=== PATIENT | female | born 1940 | race Caucasian/White ===

== ENCOUNTER → 2022-09-25 15:37 | Outpatient (BNVA) | payer MEDICARE, BC, SELFPAY | PROVIDERS: Visit Provider Nurse Practitioner Family | DX: N39.0 Urinary tract infection, site not specified (principal) | CPT/HCPCS: Q3014 ==

== ENCOUNTER 2023-02-21 14:07 | Outpatient (REF) | payer MEDICARE, BC, SELFPAY | END 2023-02-21 14:08 | disposition home or self-care (01) | LOC: HO.LNP 14:07 | PROVIDERS: Visit Provider Nurse Practitioner Family | DX: N39.0 Urinary tract infection, site not specified (principal) | CPT/HCPCS: 87086 ==

== ENCOUNTER 2024-08-24 16:22 | Outpatient (AMB) | payer MEDICARE, BC, SELFPAY ==
--- NOTE | 2024-08-24 16:23 | MHC.OFFVIS ---
Intake Visit Reasons: UTI? Allergies nitrofurantoin [From Macrobid] Allergy (Verified 08/24/24 16:31) Unknown sulfamethoxazole [From Bactrim] Allergy (Verified 08/24/24 16:31) Unknown Medication List - Last Reconciled 08/24/24 by VASYL Rai- apixaban (Eliquis) 5 mg PO BID ascorbic acid (vitamin C) 1 g PO DAILY 90 days cranberry-vitamin C-mannose 250-30-50 mg tabs PO famotidine 20 mg PO BID fluoxetine 20 mg PO DAILY levothyroxine 0 mcg PO memantine mg PO DAILY metoprolol succinate ER 12.5 mg PO DAILY trimethoprim 100 mg PO DAILY 90 days HPI Comments Details: Marita is a pleasant 83-year-old female patient who was accompanied by her daughter Indira at today's visit. She has a PMH of two previous strokes and suffers from expressive aphasia. She is being follow-up on today via video telehealth for her history of recurrent urinary tract infections. In discussion with the patient and her daughter today she reports having followed up back home as recommended however is still awaiting treatment for positive urine culture results that she received via her portal. These results were reviewed today. Aerococcus urinae <10,000 cfu/ml. Unfortunately there are no culture sensitivities at this time. We discussed further treatment options. She does report compliance with suppression trimethoprim and feels this has been helpful as she has been experiencing less urinary tract infections as well as UTI like symptoms. She also reports to be taking OTC Dmannose as well. In discussion with the patient today although limited due to her aphasia she is in good spirits. She reports to be doing and feeling well and appears happy. She denies denies urinary urgency, urinary frequency, nocturia, hematuria, dysuria, foul smelling urine, changes to urinary stream, flank pain, fever, and or chills. Patient's daughter Indira reports typical UTI like symptoms are mental status changes and patient continues to be off . She otherwise offers no other issues or concerns at this time Review of Systems Const Reports as per HPI Eyes Reports no additional complaints ENT Reports no additional complaints Card Reports no additional complaints Resp Reports no additional complaints GI Reports no additional complaints Reports as per HPI Musc Reports no additional complaints Neuro Reports as per HPI Psych Reports no additional complaints Endo Reports no additional complaints Joby/Lymph Reports no additional complaints Aller/Immun Reports no additional complaints Physical Exam Const General: cooperative, healthy appearing, comfortable, no acute distress, well developed, alert and awake Orientation/consciousness: oriented to person Resp Effort & Inspection: normal respiratory effort and able to speak in complete sentences Neuro General: oriented to person Speech: Expressive aphasia present Psych Appearance: grossly normal and well kempt Attitude: cooperative Insight: Fair insight present (Psych) Judgement: Fair judgement present (Psych) Telehealth Telehealth Telehealth Platform: [employer] Location of provider rendering services: practice address Location of patient: address on file Patient Identification confirmed using: Name, : Yes Telehealth method: video Patient verbally consented to treatment: Yes Patient verbally consented to billing insurance company: Yes Patient informed of any privacy concerns related to visit: Yes Minutes spent on Phone/Video with Pt.: 20 Assessment & Plan Assessment & Plan (1) Complicated urinary tract infection: Code(s): N39.0 - Urinary tract infection, site not specified Category: Medical Plan Recent urine culture results reviewed with the patient today; as noted above. Start Augmentin as discussed and prescribed. Discussed UTI prevention with D mannose supplement, vitamin-C, increasing fluid intake, behavioral therapy with timed voiding, perineal hygiene and postcoital voiding, and management of constipation with stool softeners and increased fiber intake. Discussed holding suppression dose while on treatment dose for urinary tract infection. Patient educated to call the office with any questions, concerns, or worsening symptoms. Medications: New amoxicillin-pot clavulanate 500-125 mg (Augmentin) 1 tab PO Q8H 7 days 21 tabs 0RF N39.0 - Urinary tract infection, site not specified Patient Instructions: The patient had an opportunity to ask questions regarding the treatment plan. All questions were answered. Physical exam, labs, and imaging were discussed and reviewed in detail. As well as risks, benefits, and discussion of treatment choices. No major barriers to understanding were identified. The patient expressed understanding and agreement with the above treatment plan. The patient was made aware they should contact our office by phone for worsening of their current condition, the appearance of new symptoms, or with any questions or concerns. Compliance is encouraged with any medications and follow up testing that is ordered. It is a privilege to be allowed the opportunity to participate in? your urological care.? Again, if you have any questions or concerns If you have any questions or concerns please do not hesitate to contact me. The office is [phone]. This note is constructed using voice recognition software. While every effort has been made to ensure accuracy dry color mixer errors may have been included. Yours sincerely, LENY Rai Coding Level of Care Code Tele Est Pt Level 4 (81193) Diagnoses Complicated urinary tract infection N39.0
== END 2024-08-24 16:53 | disposition home or self-care (01) ==
LOC: HO.HUSH 16:22
PROVIDERS: Visit Provider Nurse Practitioner Family
DX: N39.0 Urinary tract infection, site not specified (principal)
CPT/HCPCS: 99214